=== PATIENT | female | born 1950 | race Caucasian/White ===

== ENCOUNTER 2016-10-22 12:33 | Emergency (ER) | payer OTHER ==
[2016-10-22 12:46] VITALS: TEMP 97.7
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
[2016-10-22] MEDS ORDERED: ONDANSETRON DISINTEGRATING 4 MG TAB PO ONE (14:48)
[2016-10-22 15:31] VITALS: BP 120/81; PULSE 74; RESP 16; O2SAT 96
== END 2016-10-22 15:40 | disposition home or self-care (01) ==
DX: S16.1XXA Strain of muscle, fascia and tendon at neck level, initial encounter (principal); V49.40XA Driver injured in collision with unspecified motor vehicles in traffic accident, initial encounter; Y92.410 Unspecified street and highway as the place of occurrence of the external cause; Y99.8 Other external cause status; Y93.89 Activity, other specified

== ENCOUNTER 2018-03-10 14:22 | Emergency (ER) | payer OTHER, MEDICARE ==
--- NOTE | 2018-03-10 14:34 | EDPHY ---
H & P Time Seen by Provider: 03/10/18 14:24 HPI/ROS: HPI: This is a 67-year-old female who presents with Chief Complaint: Left upper quadrant pain Location: Left lower quadrant Quality: Pain Duration: 1 hr prior to arrival Signs and Symptoms: no fever, no nausea, no vomiting, no hematemesis, no blood in stool, no abdominal bloating, no diarrhea, no back pain, no urinary symptoms , no vaginal bleeding/discharge, no indigestion, no chest pain, no shortness of breath Timing: Acute, slowly improved Severity: Moderate Context: Patient had a colonoscopy with polypectomy due to history of colonic polyps performed by Dr. Davis outpatient today at 11:00 a.m. Patient developed left upper quadrant left rib pain status post procedure. Initial x- ray was negative for free air and perforation. Patient sent to the emergency room for further evaluation. Given IV fentanyl on route with near complete relief of pain. Denies any lower extremity edema/swelling, shortness of breath , chest pain. She is passing liquid stool but is not passing flatus yet. Denies any nausea, vomiting. Modifying Factors: Fentanyl Comment: ROS: A comprehensive 10 system review of systems is otherwise negative aside from elements mentioned in the history of present illness. MEDICAL/SURGICAL/SOCIAL HISTORY: Medical history: peripheral neuropathy, meningiomas, r rotator cuff Surgical history: Colonoscopy Social history: Retired. Family history noncontributory. CONSTITUTIONAL: Polite and cooperative, well-appearing elderly white female awake and alert, no obvious distress HEENT: Atraumatic and normocephalic, PERRL, EOMI. Nares patent; no rhinorrhea; no nasal mucosal edema. Tympanic membranes clear. Oropharynx clear, no exudate and moist pink mucosa. Airway patent. No lymphadenopathy. No meningismus. Cardiovascular: Normal S1/S2, regular rate, regular rhythm, without murmur rub or gallop. PULMONARY/CHEST: Symmetrical and nontender. Clear to auscultation bilaterally. Good air movement. No accessory muscle usage. ABDOMEN: Soft, nondistended, moderate left upper quadrant and epigastric tenderness, no rebound, no guarding, no peritoneal signs, no masses or organomegaly. No CVAT. Bowel sounds hypoactive x4 quadrants. EXTREMITIES: 2/2 pulses, strength 5/5, no deformities, no clubbing, no cyanosis or edema. NEUROLOGICAL: no focal neuro deficits. GCS 15. SKIN: Warm and dry, no erythema. no rash. Good capillary refill. Source: Patient Exam Limitations: No limitations - Medical/Surgical History Hx Asthma: No Hx Chronic Respiratory Disease: No Hx Diabetes: No Hx Cardiac Disease: No Hx Renal Disease: No Hx Cirrhosis: No Hx Alcoholism: No Hx HIV/AIDS: No Hx Splenectomy or Spleen Trauma: No Other PMH: peripheral neuropathy. meningiomas. r rotator cuff - Social History Smoking Status: Never smoked Constitutional: Initial Vital Signs Temperature (C) 36.7 C 03/10/18 14:28 Heart Rate 81 03/10/18 14:28 Respiratory Rate 20 03/10/18 14:28 Blood Pressure 127/75 H 03/10/18 14:28 O2 Sat (%) 95 03/10/18 14:28 O2 Delivery Mode Room Air Allergies/Adverse Reactions: divalproex sodium [From Depakote] Allergy (Verified 10/22/16 12:41) Sulfa (Sulfonamide Antibiotics) Allergy (Verified 10/22/16 12:41) Home Medications: Medication Instructions Recorded Dilaudid 10/22/16 Levothyroxine 10/22/16 Medical Decision Making - Diagnostics Imaging Results: Imaging Impressions Abdomen CT 03/10/18 14:33 Impression: 1. Increased density ascites around the spleen and to the cul-de-sac and could be related to blood products. There is no evidence of contrast extravasation from IV contrast administration. Only a small amount of ascites is noted around the liver. 2. Increase in size of dominant cyst upper pole left kidney with additional smaller cysts noted bilaterally. 3. Vascular congestion around the periphery of the uterus as well as into each adnexa with prominence of the left ovarian vein. Consider pelvic congestion syndrome. If indicated, consider consultation with interventional radiology for possible embolization procedure. 4. Interval increase in size and number of liver cysts / hamartomas. Findings discussed with Sandra BARRAZA and Dr. Davis at 15:55 hour, 2017. ED Course/Re-evaluation: Vital signs reviewed and stable upon arrival. IV access and laboratory studies obtain. CT abdomen and pelvis scan ordered Patient is currently not in any pain. 1514: Labs reviewed. No signs of leukocytosis/anemia/platelet dysfunction/YOVANA/ elevated LFTs/electrolyte imbalance/pancreatitis. 1552: Called by Radiology, Dr. Brown, who reports CT abdomen and pelvis scan shows no free air, perforation, obstruction. Does show increase in renal and liver cysts this from prior study which appeared to be benign. Ultrasound is not recommended for follow-up. There is a small amount of splenic ascites measuring 1 x 2 cm. 1555: Attending, Dr. Kovacs, called Dr. Davis and updated on unremarkable results. Dr. Davis advised that he will call the patient tomorrow for close follow-up. Discharged with pain control and follow up with Dr. Davis This patient was seen under the supervision of my secondary supervising physician. I evaluated care for this patient independently. Discussed this patient with Dr. Kovacs. Differential Diagnosis: Differential diagnosis includes but is not limited to perforation, peritonitis, pancreatitis, peptic ulcer disease, abdominal gas pain. - Data Points Laboratory Results: Laboratory Results 03/10/18 14:41 03/10/18 14:41 03/10/18 03/10/18 14:41 14:41 WBC 7.85 10^3/uL 10^3/uL (3.80-9.50) RBC 4.14 10^6/uL L 10^6/uL (4.18-5.33) Hgb 12.7 g/dL g/dL (12.6-16.3) Hct 36.8 % L % (38.0-47.0) MCV 88.9 fL fL (81.5-99.8) MCH 30.7 pg pg (27.9-34.1) MCHC 34.5 g/dL g/dL (32.4-36.7) RDW 13.3 % % (11.5-15.2) Plt Count 187 10^3/uL 10^3/uL (150-400) MPV 10.4 fL fL (8.7-11.7) Neut % (Auto) 79.9 % H % (39.3-74.2) Lymph % (Auto) 12.2 % L % (15.0-45.0) [place] % (Auto) 6.8 % % (4.5-13.0) Eos % (Auto) 0.1 % L % (0.6-7.6) Baso % (Auto) 0.5 % % (0.3-1.7) Nucleat RBC Rel Count 0.0 % % (0.0-0.2) Absolute Neuts (auto) 6.27 10^3/uL 10^3/uL (1.70-6.50) Absolute Lymphs (auto) 0.96 10^3/uL L 10^3/uL (1.00-3.00) Absolute Monos (auto) 0.53 10^3/uL 10^3/uL (0.30-0.80) Absolute Eos (auto) 0.01 10^3/uL L 10^3/uL (0.03-0.40) Absolute Basos (auto) 0.04 10^3/uL 10^3/uL (0.02-0.10) Absolute Nucleated RBC 0.00 10^3/uL 10^3/uL (0-0.01) Immature Gran % 0.5 % % (0.0-1.1) Immature Gran # 0.04 10^3/uL 10^3/uL (0.00-0.10) Sodium 136 mEq/L mEq/L (135-145) Potassium 3.9 mEq/L mEq/L (3.3-5.0) Chloride 107 mEq/L mEq/L (97-110) Carbon Dioxide 21 mEq/l L mEq/l (22-31) Anion Gap 8 mEq/L mEq/L (6-14) BUN 11 mg/dL mg/dL (7-23) Creatinine 0.5 mg/dL L mg/dL (0.6-1.0) Estimated GFR > 60 Glucose 85 mg/dL mg/dL (70-100) Calcium 9.1 mg/dL mg/dL (8.5-10.4) Total Bilirubin 1.0 mg/dL mg/dL (0.1-1.4) Conjugated Bilirubin 0.2 mg/dL mg/dL (0.0-0.5) Unconjugated Bilirubin 0.8 mg/dL mg/dL (0.0-1.1) AST 14 IU/L IU/L (14-46) ALT 23 IU/L IU/L (9-52) Alkaline Phosphatase 45 IU/L IU/L (38-126) Total Protein 5.6 g/dL L g/dL (6.3-8.2) Albumin 3.4 g/dL L g/dL (3.5-5.0) Lipase 63 IU/L IU/L (23-300) Departure - Departure Disposition: Home, Routine, Self-Care Clinical Impression: Postoperative left upper quadrant abdominal pain, Benign liver cyst, Benign cyst of kidney Condition: Good Instructions: Gas and Bloating (ED), Colonoscopy (DC) Additional Instructions: Consume a minimum of 8-10 glasses of water or electrolyte fluid replacement dr You are encouraged to walk frequently. Take Tylenol 650 mg every 4 hr and/or ibuprofen 600 mg every 8 hr as needed for pain. Take [id number] Mylicon or Gas-X as needed for abdominal gas pain. Dr. Davis will call you tomorrow for close follow up. Return to the Emergency Room if symptoms do not resolve in the next 48-72 hours , you spike a fever > 102 F, or experience intractable abdominal pain/nausea/ vomiting. Referrals: Ashwin Davis MD [[facility] Primary Care Provider] - As per Instructions
[2018-03-10 14:50] LABS: PLATELET COUNT 187 10^3/uL (150-400)
[2018-03-10] MEDS ORDERED: IOPAMIDOL (ISOVUE-300) 100 ML BTL ONE (15:11)
[2018-03-10 16:19] VITALS: BP 122/72
== END 2018-03-10 16:43 | disposition home or self-care (01) ==
LOC: EDUNIT#
DX: R10.12 Left upper quadrant pain (principal); K76.89 Other specified diseases of liver; N28.1 Cyst of kidney, acquired; Z98.890 Other specified postprocedural states
CPT/HCPCS: 74177; 99285; Q9967

== ENCOUNTER → 2018-03-10 | Outpatient (CLI) | payer OTHER, MEDICARE | LOC: BMCIMAGING 12:49 | PROVIDERS: ATTEND Internal Medicine Gastroenterology | DX: R10.12 Left upper quadrant pain (principal) ==

== ENCOUNTER 2018-03-11 15:16 | Emergency (ER) | payer OTHER, MEDICARE ==
[2018-03-11] MEDS ORDERED: NS 1,000 ML IV ONE ×2 (15:23→16:23)
[2018-03-11 15:31] LABS: PLATELET COUNT 238 10^3/uL (150-400)
--- NOTE | 2018-03-11 15:38 | EDPHY ---
H & P Stated Complaint: Abdominal pain. Time Seen by Provider: 03/11/18 15:20 HPI/ROS: CHIEF COMPLAINT: Vomiting unable to keep medications down HISTORY OF PRESENT ILLNESS: The patient is a 67-year-old female who comes to the emergency department complaining of nausea vomiting and unable to keep pain medications down. She was seen here yesterday for abdominal pain. She had had a colonoscopy earlier in the day and then developed left upper quadrant pain and was referred by Dr. Davis here to the ER. She had a CT scan was unremarkable except for small amount of fluid around the spleen. No sign of perforation. Patient states that her pain is improved but that she has been vomiting today and cannot keep her medications down or fluids. She typically takes Dilaudid throughout the day to control her chronic peripheral neuropathy pain. No fevers. No blood in her vomit. No diarrhea. She was given Zofran and fentanyl by EMS and now states that she feels completely better. Severity: Moderate Modifying factors: None REVIEW OF SYSTEMS: Constitutional: denies: chills, fever, recent illness, recent injury EENTM: denies: blurred vision, double vision, nose congestion Respiratory: denies: cough, shortness of breath Cardiac: denies: chest pain, irregular heart rate, lightheadedness, palpitations Gastrointestinal/Abdominal: denies: abdominal pain, diarrhea, nausea, vomiting, blood streaked stools Genitourinary: denies: dysuria, frequency, hematuria, pain Musculoskeletal: denies: joint pain, muscle pain Skin: denies: lesions, rash, jaundice, bruising Neurological: denies: headache, numbness, paresthesia, tingling, dizziness, weakness Hematologic/Lymphatic: denies: blood clots, easy bleeding, easy bruising Immunologic/allergic: denies: HIV/AIDS, transplant 10 systems reviewed and negative except as noted EXAM: GENERAL: Well-appearing, well-nourished and in no acute distress. HEAD: Atraumatic, normocephalic. EYES: Pupils equal round and reactive to light, extraocular movements intact, sclera anicteric, conjunctiva are normal. ENT: TMs normal, nares patent, oropharynx clear without exudates. Moist mucous membranes. NECK: Normal range of motion, supple without lymphadenopathy or JVD. LUNGS: Breath sounds clear to auscultation bilaterally and equal. No wheezes rales or rhonchi. HEART: Regular rate and rhythm without murmurs, rubs or gallops. ABDOMEN: Soft, nontender, normoactive bowel sounds. No guarding, no rebound. No masses appreciated. BACK: No CVA tenderness, no spinal tenderness, step-offs or deformities EXTREMITIES: Normal range of motion, no pitting or edema. No clubbing or cyanosis. NEUROLOGICAL: Cranial nerves II through XII grossly intact. Normal speech, normal gait. 5/5 strength, normal movement in all extremities, normal sensation , normal reflexes PSYCH: Normal mood, normal affect. SKIN: Warm, dry, normal turgor, no visible rashes or lesions. Source: Patient Exam Limitations: No limitations - Personal History Current Tetanus Diphtheria and Acellular Pertussis (TDAP): Yes Tetanus Vaccine Date: 2016 - Medical/Surgical History Hx Asthma: No Hx Chronic Respiratory Disease: No Hx Diabetes: No Hx Cardiac Disease: No Hx Renal Disease: No Hx Cirrhosis: No Hx Alcoholism: No Hx HIV/AIDS: No Hx Splenectomy or Spleen Trauma: No Other PMH: peripheral neuropathy. meningiomas. r rotator cuff. Hypothyroid. - Family History Significant Family History: No pertinent family hx - Social History Smoking Status: Never smoked Alcohol Use: Sober Drug Use: None Constitutional: Initial Vital Signs Temperature (C) 36.9 C 03/11/18 15:19 Heart Rate 84 03/11/18 15:19 Respiratory Rate 16 03/11/18 15:19 Blood Pressure 138/71 H 03/11/18 15:19 O2 Sat (%) 95 03/11/18 15:19 O2 Delivery Mode Room Air Allergies/Adverse Reactions: divalproex sodium [From Depakote] Allergy (Verified 10/22/16 12:41) Sulfa (Sulfonamide Antibiotics) Allergy (Verified 10/22/16 12:41) Home Medications: Medication Instructions Recorded Dilaudid 10/22/16 Levothyroxine 10/22/16 Promethazine HCl [Phenergan 25mg 25 mg SD Q4-6PRN PRN #10 suppr 03/11/18 supp (RX)] Medical Decision Making ED Course/Re-evaluation: The patient is feeling better after treatment by EMS. I will hydrate her and recheck her lab work. She would like to take her own Dilaudid. 4:15 p.m. the patient is feeling much better. Her abdominal exam remains benign. She has not had any more vomiting. She would like a 2nd L of fluid. She is also tolerating p.o.. 5:00 p.m. the patient's abdominal exam remains benign. She is sleeping comfortably. She states that she feels ready to go home. We discussed options. She is tolerating p. O.. I will prescribe her rectal Phenergan as an option. Differential Diagnosis: Partial list of the Differential diagnosis considered include but were not limited to; vomiting, dehydration and although unlikely based on the history and physical exam, I also considered obstruction, ischemia, volvulus, perforation. I discussed these differential diagnoses and the plan with the patient as well as the usual and expected course. The patient understands that the diagnosis is provisional and that in medicine we are not always correct and that further workup is often warranted. Usual and customary warnings were given. All of the patient's questions were answered. The patient was instructed to return to the emergency department should the symptoms at all worsen or return, otherwise to followup with the physician as we discussed. - Data Points Laboratory Results: Laboratory Results 03/11/18 15:26 03/11/18 15:26 03/11/18 03/11/18 15:26 15:26 WBC 10.69 10^3/uL H 10^3/uL (3.80-9.50) RBC 4.64 10^6/uL 10^6/uL (4.18-5.33) Hgb 14.1 g/dL g/dL (12.6-16.3) Hct 40.9 % % (38.0-47.0) MCV 88.1 fL fL (81.5-99.8) MCH 30.4 pg pg (27.9-34.1) MCHC 34.5 g/dL g/dL (32.4-36.7) RDW 13.5 % % (11.5-15.2) Plt Count 238 10^3/uL 10^3/uL (150-400) MPV 10.8 fL fL (8.7-11.7) Neut % (Auto) 78.4 % H % (39.3-74.2) Lymph % (Auto) 14.4 % L % (15.0-45.0) [place] % (Auto) 5.9 % % (4.5-13.0) Eos % (Auto) 0.1 % L % (0.6-7.6) Baso % (Auto) 0.5 % % (0.3-1.7) Nucleat RBC Rel Count 0.0 % % (0.0-0.2) Absolute Neuts (auto) 8.38 10^3/uL H 10^3/uL (1.70-6.50) Absolute Lymphs (auto) 1.54 10^3/uL 10^3/uL (1.00-3.00) Absolute Monos (auto) 0.63 10^3/uL 10^3/uL (0.30-0.80) Absolute Eos (auto) 0.01 10^3/uL L 10^3/uL (0.03-0.40) Absolute Basos (auto) 0.05 10^3/uL 10^3/uL (0.02-0.10) Absolute Nucleated RBC 0.00 10^3/uL 10^3/uL (0-0.01) Immature Gran % 0.7 % % (0.0-1.1) Immature Gran # 0.08 10^3/uL 10^3/uL (0.00-0.10) Sodium 137 mEq/L mEq/L (135-145) Potassium 4.1 mEq/L mEq/L (3.3-5.0) Chloride 104 mEq/L mEq/L (97-110) Carbon Dioxide 19 mEq/l L mEq/l (22-31) Anion Gap 14 mEq/L mEq/L (6-14) BUN 8 mg/dL mg/dL (7-23) Creatinine 0.7 mg/dL mg/dL (0.6-1.0) Estimated GFR > 60 Glucose 75 mg/dL mg/dL (70-100) Calcium 9.9 mg/dL mg/dL (8.5-10.4) Total Bilirubin 1.4 mg/dL mg/dL (0.1-1.4) Conjugated Bilirubin 0.3 mg/dL mg/dL (0.0-0.5) Unconjugated Bilirubin 1.1 mg/dL mg/dL (0.0-1.1) AST 17 IU/L IU/L (14-46) ALT 24 IU/L IU/L (9-52) Alkaline Phosphatase 63 IU/L IU/L (38-126) Total Protein 6.7 g/dL g/dL (6.3-8.2) Albumin 4.3 g/dL g/dL (3.5-5.0) Lipase 98 IU/L IU/L (23-300) Medications Given: Discontinued Medications Sodium Chloride (Ns) 1,000 mls @ 0 mls/hr IV EDNOW ONE; Wide Open PRN Reason: Protocol Stop: 03/11/18 15:24 Last Admin: 03/11/18 15:38 Dose: 1,000 mls Sodium Chloride (Ns) 1,000 mls @ 0 mls/hr IV EDNOW ONE; Wide Open PRN Reason: Protocol Stop: 03/11/18 16:24 Last Admin: 03/11/18 16:28 Dose: 1,000 mls Departure - Departure Disposition: Home, Routine, Self-Care Clinical Impression: Dehydration Vomiting Qualifiers: Vomiting type: unspecified Vomiting Intractability: non-intractable Nausea presence: with nausea Qualified Code(s): R11.2 - Nausea with vomiting, unspecified Condition: Fair Instructions: Acute Nausea and Vomiting (ED) Referrals: Patient,NotPresent [Unknown] - As per Instructions Ashwin Davis MD [[facility] [place] Primary Care Provider] - 2-3 days, call for appt. Prescriptions: Promethazine HCl [Phenergan 25mg supp (RX)] 25 mg SD Q4-6PRN PRN #10 suppr PRN Reason: Headache
[2018-03-11 18:04] VITALS: BP 125/78
== END 2018-03-11 18:15 | disposition home or self-care (01) ==
LOC: EDUNIT#
DX: R11.2 Nausea with vomiting, unspecified (principal); E86.0 Dehydration; G62.9 Polyneuropathy, unspecified; E03.9 Hypothyroidism, unspecified; Z98.890 Other specified postprocedural states

== ENCOUNTER 2018-03-12 10:34 | Inpatient (IN) | payer OTHER, MEDICARE ==
[2018-03-12] MEDS ORDERED: NS 1,000 ML IV ONE (10:57)
[2018-03-12] MEDS ORDERED: LORazepam 2 MG/ML INJ IVP ONE (11:02)
--- NOTE | 2018-03-12 11:03 | EDPHY ---
H & P Stated Complaint: NV - since colonoscopy wed Time Seen by Provider: 03/12/18 10:52 HPI/ROS: CHIEF COMPLAINT: Intractable vomiting HISTORY OF PRESENT ILLNESS: The patient presents to the ED with intractable vomiting since her colonoscopy on Thursday. The patient has been seen in the emergency department now 3 times. She did undergo a CT scan of her abdomen and pelvis 2 days ago which demonstrated a nonspecific amount of fluid around her spleen but otherwise was unremarkable. The patient was seen again yesterday and discharged home with suppositories which have not helped her vomiting. She continues to have crampy abdominal pain. She denies fever. She denies additional acute complaints. REVIEW OF SYSTEMS: A comprehensive 10 point review of systems is otherwise negative aside from elements mentioned in the history of present illness. Source: Patient - Personal History Current Tetanus Diphtheria and Acellular Pertussis (TDAP): Yes Tetanus Vaccine Date: 2016 - Medical/Surgical History Hx Asthma: No Hx Chronic Respiratory Disease: No Hx Diabetes: No Hx Cardiac Disease: No Hx Renal Disease: No Hx Cirrhosis: No Hx Alcoholism: No Hx HIV/AIDS: No Hx Splenectomy or Spleen Trauma: No Other PMH: peripheral neuropathy. meningiomas. r rotator cuff. Hypothyroid. Migraines - Social History Smoking Status: Never smoked - Physical Exam Exam: General Appearance: Alert, no distress Eyes: Pupils equal and round no pallor or injection ENT, Mouth: Mucous membranes moist Respiratory: There are no retractions, lungs are clear to auscultation Cardiovascular: Regular rate and rhythm Gastrointestinal: Mild abdominal tenderness, no peritoneal signs, normal bowel sounds Neurological: A&O, normal motor function, normal sensory exam, normal cranial nerves Skin: Warm and dry, no rashes Musculoskeletal: Neck is supple nontender Extremities: symmetrical, full range of motion Psychiatric: Patient is oriented X 3, there is no agitation Constitutional: Initial Vital Signs Temperature (C) 37 C 03/12/18 10:44 Heart Rate 67 03/12/18 10:44 Respiratory Rate 18 03/12/18 10:44 Blood Pressure 194/93 H 03/12/18 10:44 O2 Sat (%) 100 03/12/18 10:44 O2 Delivery Mode Room Air Allergies/Adverse Reactions: divalproex sodium [From Depakote] Allergy (Verified 10/22/16 12:41) Sulfa (Sulfonamide Antibiotics) Allergy (Verified 10/22/16 12:41) Home Medications: Medication Instructions Recorded HYDROmorphone HCL [Hydromorphone 2 mg PO QID PRN MDD MODERATE PAIN 03/12/18 HCl] Levothyroxine [Synthroid 88 mcg 88 mcg PO DAILY06 03/12/18 (*)] Medical Decision Making - Diagnostics Imaging Results: Imaging Impressions Abdomen CT 03/12/18 11:19 Impression: Grade 1 splenic laceration with improving subcapsular hematoma and blood in the cul-de-sac. Results discussed with Dr. Finesse Faye at 11:46 AM. General information for patients regarding this examination can be found at [email or web address]. If you have questions or comments about this report, please contact me at [phone] (hospital) or [phone] (cell). ED Course/Re-evaluation: The patient presents the ED with intractable vomiting and ongoing abdominal pain since a colonoscopy 3 days ago. I reviewed her past medical records including her CT scan from 2 days ago. The patient had an IV established. She received 2 L of normal saline. She received IV Zofran. Given her ongoing symptoms the CT scan was repeated and does demonstrate a small contained splenic laceration with a mild amount of hemoperitoneum. Consultation was made with Dr. Morales from General surgery who feels that this is non operative at this point time. He is comfortable with admission to the hospitalist service for IV fluid hydration and control of her vomiting. Patient underwent serial examinations in the ED. She had no evidence of hypotension or critical anemia noted on her laboratory testing. Consultation was made with the hospitalist service. The patient will be admitted by Dr. Hankins. Differential Diagnosis: Differential diagnosis considered includes dehydration, metabolic abnormality, intra-abdominal injury, perforation, obstruction Critical Care Time: Critical care time exclusive of procedures and exclusive of the PA's time was 35 minutes, performed by myself, Graeme Faye MD. The patient presents to the ED with a delayed diagnosis of a spleen injury. The patient was noted to be quite dehydrated with a low CO2 of 15. She required aggressive fluid hydration in the ED. She will be admitted to the hospital for further resuscitation and stabilization. Consultation was made with both the trauma surgeon and hospitalist regarding her care. - Data Points Laboratory Results: Laboratory Results 03/12/18 10:50 03/12/18 10:50 03/12/18 03/12/18 10:50 10:50 WBC 10.55 10^3/uL H 10^3/uL (3.80-9.50) RBC 5.09 10^6/uL 10^6/uL (4.18-5.33) Hgb 15.6 g/dL g/dL (12.6-16.3) Hct 45.5 % % (38.0-47.0) MCV 89.4 fL fL (81.5-99.8) MCH 30.6 pg pg (27.9-34.1) MCHC 34.3 g/dL g/dL (32.4-36.7) RDW 13.5 % % (11.5-15.2) Plt Count 261 10^3/uL 10^3/uL (150-400) MPV 11.2 fL fL (8.7-11.7) Neut % (Auto) 91.8 % H % (39.3-74.2) Lymph % (Auto) 5.7 % L % (15.0-45.0) [place] % (Auto) 1.7 % L % (4.5-13.0) Eos % (Auto) 0.1 % L % (0.6-7.6) Baso % (Auto) 0.2 % L % (0.3-1.7) Nucleat RBC Rel Count 0.0 % % (0.0-0.2) Absolute Neuts (auto) 9.69 10^3/uL H 10^3/uL (1.70-6.50) Absolute Lymphs (auto) 0.60 10^3/uL L 10^3/uL (1.00-3.00) Absolute Monos (auto) 0.18 10^3/uL L 10^3/uL (0.30-0.80) Absolute Eos (auto) 0.01 10^3/uL L 10^3/uL (0.03-0.40) Absolute Basos (auto) 0.02 10^3/uL 10^3/uL (0.02-0.10) Absolute Nucleated RBC 0.00 10^3/uL 10^3/uL (0-0.01) Immature Gran % 0.5 % % (0.0-1.1) Immature Gran # 0.05 10^3/uL 10^3/uL (0.00-0.10) Sodium 140 mEq/L mEq/L (135-145) Potassium 4.1 mEq/L mEq/L (3.3-5.0) Chloride 102 mEq/L mEq/L (97-110) Carbon Dioxide 15 mEq/l L mEq/l (22-31) Anion Gap 23 mEq/L H mEq/L (6-14) BUN 8 mg/dL mg/dL (7-23) Creatinine 0.6 mg/dL mg/dL (0.6-1.0) Estimated GFR > 60 Glucose 132 mg/dL H mg/dL (70-100) Calcium 10.5 mg/dL H mg/dL (8.5-10.4) Medications Given: Discontinued Medications Sodium Chloride (Ns) 1,000 mls @ 0 mls/hr IV EDNOW ONE; Wide Open PRN Reason: Protocol Stop: 03/12/18 10:58 Last Admin: 03/12/18 11:09 Dose: 1,000 mls Lorazepam (Ativan Injection) 1 mg IVP EDNOW ONE Stop: 03/12/18 11:03 Last Admin: 03/12/18 11:10 Dose: 1 mg Departure - Departure Disposition: [facility] Clinical Impression: Dehydration Vomiting Qualifiers: Vomiting type: bilious vomiting Nausea presence: with nausea Qualified Code(s) : R11.14 - Bilious vomiting Spleen laceration Qualifiers: Encounter type: initial encounter Qualified Code(s): S36.039A - Unspecified laceration of spleen, initial encounter Condition: Fair
[2018-03-12 11:07] LABS: PLATELET COUNT 261 10^3/uL (150-400)
[2018-03-12] MEDS ORDERED: IOPAMIDOL (ISOVUE-300) 100 ML BTL ONE (11:23)
--- NOTE | 2018-03-12 12:44 | GCON ---
DATE OF CONSULTATION: 03/12/2018 CHIEF COMPLAINT: Abdominal pain with nausea and vomiting. HISTORY OF PRESENT ILLNESS: This is a 67-year-old female who underwent a colonoscopy on Thursday. This is her 3rd visit to the emergency department. Briefly, each day since the colonoscopy, she has presented with nausea, vomiting , and abdominal pain. She had a CT scan of her abdomen and pelvis 2 days ago, which was fairly unremarkable with the exception of a little bit of fluid around the spleen. Since that time, her nausea, vomiting, and pain have not really gotten any worse but have not gotten any better. So, she represented today, and a repeat CT scan shows a grade 1 splenic laceration. On my evaluation of the patient, she is fairly lethargic, able to provide me a history. She really points to the left upper quadrant for pain but seems somewhat exhausted. PAST MEDICAL HISTORY: Significant for peripheral neuropathy, meningiomas, hypothyroidism, and migraines. PAST SURGICAL HISTORY: She has had a rotator cuff repair. No abdominal surgeries. FAMILY HISTORY: Noncontributory. SOCIAL HISTORY: She denies any illicit drug use. 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 REVIEW OF SYSTEMS: A full 10-point review was performed. PHYSICAL EXAM: VITAL SIGNS: Temperature 37 even, blood pressure 175/94, heart rate 70, and she is 98% on room air. CONSTITUTIONAL: She appears tired but not in any distress. EYES: Somewhat sunken but otherwise equal, round, and reactive to light and accommodation. Her extraocular movements are intact. EARS, NOSE, MOUTH, THROAT: She has dry mucous membranes. Her hearing is normal. She has normal dentition. CARDIOVASCULAR: She has a regular rate and rhythm without any murmurs. RESPIRATORY: She has no respiratory distress, rales, or rhonchi. She is otherwise clear to auscultation bilaterally. ABDOMEN : Soft, nondistended. She is minimally tender in the left upper quadrant. There is no rebound, tenderness or guarding. SKIN: Warm. Normal color. No rashes or abrasions. MUSCULOSKELETAL: Full strength. No tenderness. Normal joint range of motion. NEUROLOGIC: She is alert and oriented x3. Her cranial nerves 2-12 are intact. She has no weakness, no numbness. PSYCH: She is interacting appropriately. She is not anxious or encephalopathic. She has a linear thought process. LYMPH/HEME/IMMUNOLOGIC: She has no cervical, groin, or supraclavicular lymphadenopathy appreciated. LABORATORY DATA: White blood cell count is 10.5, H and H are stable at 15 and 45. Chemistry shows an elevated glucose at 132 and an elevated calcium at 10.5. IMAGING: Includes a CT scan of her abdomen and pelvis. There was also one 2 days ago. These images were personally reviewed. No free air. No free fluid. There is a small subcapsular hematoma consistent with a grade 1 spleen laceration. There are no other significant findings. ASSESSMENT/PLAN: A 67-year-old female status post colonoscopy with intractable nausea, vomiting, and abdominal pain. Agree with admission for hydration and treatment of her nausea. Her abdominal exam is overall reassuring. I do not see any signs of guarding or rebound tenderness. Anticipate that she will get better over time. Her CT scan is fairly unremarkable. I do not see anything that would be concerning at this point in time. We will follow along with you. /[id number]/MODL MTDD
[2018-03-12] MEDS ORDERED: ONDANSETRON DISINTEGRATING 4 MG TAB PO PRN (13:11)
[2018-03-12] MEDS ORDERED: ACETAMINOPHEN 325 MG TAB PO PRN (13:11)
[2018-03-12] MEDS ORDERED: NS 1,000 ML IV SCH (13:15)
--- NOTE | 2018-03-12 16:10 | GHP ---
DATE OF ADMISSION: 03/12/2018 CHIEF COMPLAINT: Abdominal pain, nausea, vomiting. HISTORY OF PRESENT ILLNESS: This is a 67-year-old female who underwent colonoscopy on 03/10/2018. S he presented to the ER later that afternoon because of left upper quadrant pain. CT scan did show a little bit of fluid around the spleen. She was discharged. She returned to the ER yesterday for the same problem, but felt better and went home again. Then, she returned today, with the same pain, na usea, vomiting, and unable to keep food down. CT scan at this time showed a splenic laceration. Vale n is well controlled currently. She is not complaining of any nausea. No fevers or chills. REVIEW OF SYSTEMS: Ten-point Review of Systems was obtained and otherwise negative. PAST MEDICAL HISTORY: 1. Hypothyroidism. 2. History of meningiomas. They are not operable. SOCIAL HISTORY: No smoking. FAMILY HISTORY: Reviewed and noncontributory. PHYSICAL EXAMINATION: VITAL SIGNS: Afebrile. Blood pressure is 171/85, heart rate 72, oxygen satur ation 97% on room air. GENERAL: Patient is well-developed, no apparent distress. HEENT: Nonicteri c sclerae. Extraocular movements intact. Moist mucous membranes. NECK: Supple. No thyromegaly. LUNGS: Good effort. Clear to auscultation bilaterally. CARDIOVASCULAR: Regular rate and rhythm. No murmurs or gallops. ABDOMEN: Positive bowel sounds. Soft. Mild left upper quadrant tenderness. EXTREMITIES: No clubbing, cyanosis, or edema. SKIN: Without rash. Dry, intact. NEURO: Alert a nd oriented x3. Moving all extremities equally. PSYCH: Normal affect. LABORATORY DATA: White count slightly elevated at 10, hemoglobin is normal. Chemistry: There is a little bit of an anion gap acidosis. CT scan of the abdomen and pelvis shows grade 1 splenic lacerat ion with improving subcapsular hematoma and blood in the cul-de-sac. ASSESSMENT: 1. 67-year-old female with splenic laceration, status post colonoscopy. Plan: Surgery will see the patient. The treatment will be supportive care. Continue IV fluids. Will continue pain control, w ith antiemetics. 2. Hypothyroidism. Will continue medication. 3. Elevated blood pressure, probably related to pain. Will continue to watch. /[id number]/MODL
[2018-03-12] MEDS: ONDANSETRON 4 MG/2 ML VIAL IVP PRN ×2 (16:45→21:01)
[2018-03-12] MEDS: D5W 1/2 NS W/ 20 KCl/L 1,000 ML IV SCH (16:45)
[2018-03-12] MEDS ORDERED: ACETAMINOPHEN 325 MG SUPP PR PRN (18:39)
[2018-03-12] MEDS ORDERED: ACETAMINOPHEN 650 MG SUPP PR PRN (20:00)
[2018-03-12] MEDS: PROMETHAZINE HCL 25 MG/ML INJ IVP PRN (22:15)
[2018-03-13] MEDS ORDERED: LORazepam 2 MG/ML INJ IVP ONE (00:07)
[2018-03-13] MEDS: ONDANSETRON 4 MG/2 ML VIAL IVP PRN ×2 (03:31→14:35)
[2018-03-13 05:06] LABS: PLATELET COUNT 237 10^3/uL (150-400)
[2018-03-13] MEDS: D5W 1/2 NS W/ 20 KCl/L 1,000 ML IV SCH ×2 (06:06→18:01)
[2018-03-13] MEDS: LEVOTHYROXINE 88 MCG TAB PO SCH (06:09)
--- NOTE | 2018-03-13 08:41 | SOAPPROG ---
SOAP Progress Note Assessment/Plan: Assessment: nausea persists, but is better. She is tolerating clears abdominal exam remains reassuring and non-surgical. Cont clears until nausea is better CBC stable will follow Plan: 03/13/18 08:40 03/13/18 08:41 Subjective: persistent nausea Objective: Vital Signs Temp Pulse Resp BP Pulse Ox 37.1 C 81 14 162/79 H 96 03/13/18 07:39 03/13/18 07:39 03/13/18 07:39 03/13/18 07:39 03/13/18 07:39 Laboratory Results 03/13/18 04:24 03/13/18 04:24 03/12/18 03/13/18 03/14/18 05:59 05:59 05:59 Intake Total 1320 734 Balance 1320 734 ICD10 Worksheet Patient Problems: Problems Problem Status Onset Dehydration Acute Spleen laceration Acute Vomiting Acute
[2018-03-13] MEDS: PROMETHAZINE HCL 25 MG/ML INJ IVP PRN ×2 (10:56→19:54)
--- NOTE | 2018-03-13 13:16 | ASMTCMCOM ---
CM Note CM Note Notes: Pt presented to the ED for abdominal pain and N/V. Pt had a colonoscopy on 03/10/18; pt was was seen in the ED later that evening and her abdominal CT scan showed a little bit of fluid around the spleen but pt was discharged home. Pt presented again on 03/11 for same symptoms but eventually felt better and went home again. Pt admitted for intractable vomiting and splenic laceration (03/[address] scan); treatment will be supportive care. MD progress notes state pt is tolerating clears but is still nauseaus; pt's exam appears non-surgical. Exact DC needs TBD but anticipate pt to stabilize and DC Home Ind. CM to follow. Date Signed: 03/13/2018 01:16 PM Electronically Signed By:Charisma Becerra RN
--- NOTE | 2018-03-13 14:23 | HOSPPROG ---
Hospitalist Progress Note Assessment/Plan: Splenic Laceration - S/p colonoscopy on 03/10 - Seen on CT on admission with grade 1 splenic laceration with improving subcapsular hematoma and blood in the cul-de-sac - Evaluated by surgery who recommended no intervention - Continue pain control, antiemetics PRN - Continue IVF - Continue to monitor H/H Leukocytosis - WBC increased t0 12.6 this AM, also febrile to 38.4 overnight - Likely 2/2 to inflammatory rxn 2/2 to above - Will hold on abx for now, if continue to be febrile or increasing leukocytosis , order blood cultures and start empiric abx Hypothyroidism - Continue home Synthroid Elevated BP - BP elevated to SBP 160's this AM - Will continue to monitor, if remains elevated SBP >160 will start ow dose antihypertensive, does not appear pt is on one at home FEN: Regular DVT Ppx: Holding in setting of splenic laceration Code: FULL Dispo: Pending clinical course Objective: Vital Signs Temp Pulse Resp BP Pulse Ox 37.1 C 81 14 162/79 H 96 03/13/18 07:39 03/13/18 07:39 03/13/18 07:39 03/13/18 07:39 03/13/18 07:39 Laboratory Results 03/13/18 04:24 03/13/18 04:24 03/12/18 03/13/18 03/14/18 05:59 05:59 05:59 Intake Total 1320 734 Balance 1320 734 - Physical Exam Constitutional: uncomfortable Eyes: PERRL Ears, Nose, Mouth, Throat: moist mucous membranes Cardiovascular: regular rate and rhythym, No edema Respiratory: no respiratory distress Gastrointestinal: tenderness, No rebound, No distension Genitourinary: No montalvo in urethra Skin: warm Neurologic: AAOx3 Psychiatric: flat affect ICD10 Worksheet Patient Problems: Problems Problem Status Onset Dehydration Acute Spleen laceration Acute Vomiting Acute
[2018-03-13] MEDS: LORazepam 2 MG/ML INJ IVP PRN (15:56)
--- NOTE | 2018-03-13 18:17 | PDMN ---
Medical Necessity Medical necessity: Change to IP, as of 03/13/18, per MD; los >2 mn for ongoing management of splenic laceration s/p colonoscopy w/persistent nausea, leukocytosis & elevated BP; requiring further monitoring, advancement of diet as tolerated, IVFs, IV antiemetics & follow-up labs
[2018-03-14] MEDS: LORazepam 2 MG/ML INJ IVP PRN ×2 (01:14→12:36)
[2018-03-14] MEDS: PROMETHAZINE HCL 25 MG/ML INJ IVP PRN ×2 (04:54→12:35)
[2018-03-14] MEDS: LEVOTHYROXINE 88 MCG TAB PO SCH (04:54)
[2018-03-14] MEDS: HYDROmorphONE/DILAUDID 1 MG/ML INJ IVP PRN ×3 (04:57→21:53)
[2018-03-14] MEDS: D5W 1/2 NS W/ 20 KCl/L 1,000 ML IV SCH ×2 (07:18→17:59)
[2018-03-14] MEDS: ONDANSETRON 4 MG/2 ML VIAL IVP PRN ×2 (09:35→21:53)
--- NOTE | 2018-03-14 10:32 | HOSPPROG ---
Hospitalist Progress Note Assessment/Plan: Splenic Laceration - S/p colonoscopy on 03/10 - Seen on CT on admission with grade 1 splenic laceration with improving subcapsular hematoma and blood in the cul-de-sac - Evaluated by surgery who recommended no intervention - Continue pain control PRN, will schedule antiemetics given constant nausea - Continue IVF - Continue to monitor H/H, remains stable - Continue CLD, advance as tolerated Leukocytosis - WBC 12.2 this AM, 12.6 yesterday, Afebrile since overnight yesterday - Likely 2/2 to inflammatory rxn 2/2 to above - Will hold on abx for now, if continue to be febrile or increasing leukocytosis , order blood cultures and start empiric abx Hypothyroidism - Continue home Synthroid Elevated BP - BP elevated to SBP 150's this AM - Will continue to monitor, if remains elevated SBP >160 will start ow dose antihypertensive, does not appear pt is on one at home FEN: Regular DVT Ppx: Holding in setting of splenic laceration Code: FULL Dispo: Pending clinical course Subjective: Patient reports nausea this morning Objective: Vital Signs Temp Pulse Resp BP Pulse Ox 37.4 C 95 14 151/94 H 94 03/14/18 07:42 03/14/18 07:42 03/14/18 07:42 03/14/18 07:42 03/14/18 07:42 Laboratory Results 03/14/18 04:12 03/14/18 04:12 03/13/18 03/14/18 03/15/18 05:59 05:59 05:59 Intake Total 2965 Balance 2965 - Physical Exam Constitutional: no apparent distress Eyes: PERRL Ears, Nose, Mouth, Throat: dry mucous membranes Cardiovascular: regular rate and rhythym Respiratory: no respiratory distress Gastrointestinal: tenderness (TTP in LUQ) Genitourinary: No montalvo in urethra Skin: normal color Neurologic: AAOx3 Psychiatric: flat affect ICD10 Worksheet Patient Problems: Problems Problem Status Onset Dehydration Acute Spleen laceration Acute Vomiting Acute
[2018-03-14] MEDS ORDERED: ONDANSETRON DISINTEGRATING 4 MG TAB PO PRN (10:33)
--- NOTE | 2018-03-14 11:40 | SOAPPROG ---
SOAP Progress Note Assessment/Plan: Assessment: her nausea is improving along with the vomiting but she is still vomiting. ok for clear liquids, told her to go slow agree with holding abx, wbc is 12 and could be 2/2 vomiting alone hb has been stable. her abdomen is soft and she has bowel sounds Plan: 03/13/18 08:40 03/13/18 08:41 03/14/18 11:39 Subjective: feels a little better each day, still vomiting Objective: Vital Signs Temp Pulse Resp BP Pulse Ox 37.4 C 95 14 151/94 H 94 03/14/18 07:42 03/14/18 07:42 03/14/18 07:42 03/14/18 07:42 03/14/18 07:42 Laboratory Results 03/14/18 04:12 03/14/18 04:12 03/13/18 03/14/18 03/15/18 05:59 05:59 05:59 Intake Total 2965 Balance 2965 ICD10 Worksheet Patient Problems: Problems Problem Status Onset Dehydration Acute Spleen laceration Acute Vomiting Acute
[2018-03-14] MEDS: ONDANSETRON DISINTEGRATING 4 MG TAB PO SCH ×2 (12:20→17:28)
[2018-03-14] MEDS ORDERED: SCOPOLAMINE HYDROBROMIDE 1 MG/3 DAYS PATCH TD ONE (13:54)
[2018-03-14] MEDS ORDERED: LORazepam 2 MG/ML INJ IVP PRN (13:54)
[2018-03-15] MEDS: ONDANSETRON DISINTEGRATING 4 MG TAB PO SCH ×3 (00:28→11:27)
[2018-03-15] MEDS: PROMETHAZINE HCL 25 MG/ML INJ IVP PRN ×2 (05:02→11:03)
[2018-03-15] MEDS: LEVOTHYROXINE 88 MCG TAB PO SCH (05:03)
[2018-03-15 05:23] LABS: PLATELET COUNT 199 10^3/uL (150-400)
[2018-03-15] MEDS: D5W 1/2 NS W/ 20 KCl/L 1,000 ML IV SCH (06:05)
[2018-03-15] MEDS: ONDANSETRON 4 MG/2 ML VIAL IVP PRN (06:06)
[2018-03-15] MEDS: HYDROmorphONE/DILAUDID 1 MG/ML INJ IVP PRN ×4 (06:07→23:40)
[2018-03-15] MEDS ORDERED: CEPACOL LOZENGE PO PRN (11:27)
--- NOTE | 2018-03-15 12:33 | SOAPPROG ---
SOAP Progress Note Assessment/Plan: Assessment: her nausea has improved and she is tolerating clear liquids. Would advance as tolerated White count has essentially normalized Abdominal exam is reassuring Anticipate discharge within the next day or so given her improvement. I will sign off, call with any questions or concerns. There is no formal need for follow-up with me or any repeat imaging necessary for a grade 1 splenic lac. Plan: 03/13/18 08:40 03/13/18 08:41 03/14/18 11:39 03/15/18 12:32 Subjective: Nausea has improved, still has some occasional abdominal pain but stable. Objective: Vital Signs Temp Pulse Resp BP Pulse Ox 37.3 C 89 16 141/85 H 95 03/15/18 07:19 03/15/18 07:19 03/15/18 07:19 03/15/18 11:24 03/15/18 07:19 Laboratory Results 03/15/18 04:24 03/14/18 04:12 03/14/18 03/15/18 03/16/18 05:59 05:59 05:59 Intake Total 2965 300 903 Balance 2965 300 903 ICD10 Worksheet Patient Problems: Problems Problem Status Onset Dehydration Acute Spleen laceration Acute Vomiting Acute
[2018-03-15] MEDS ORDERED: HYDROmorphONE/DILAUDID 2 MG TAB PO PRN (13:20)
--- NOTE | 2018-03-15 13:27 | HOSPPROG ---
Hospitalist Progress Note Assessment/Plan: * Splenic laceration as complication of colonoscopy - grade 1 -supportive care -pain control - IV dilaudid - change to PO dilaudid as able * Intractable N/V - just tolerating first clear liquids -advance diet as tolerated * Hypothyroid -continue synthroid * HTN -might be due to pain -close outpatient follow-up Subjective: Just tolerating clear liquids Objective: Vital Signs Temp Pulse Resp BP Pulse Ox 37.3 C 86 16 141/85 H 95 03/15/18 07:19 03/15/18 09:00 03/15/18 07:19 03/15/18 11:24 03/15/18 09:00 Laboratory Results 03/15/18 04:24 03/14/18 04:12 03/14/18 03/15/18 03/16/18 05:59 05:59 05:59 Intake Total 2965 300 903 Balance [address] abd/pelvis - subcapsular hematoma spleen Old chart reviewed - visited the ER daily prior to final admission. CT initially negative - Physical Exam Constitutional: no apparent distress, appears nourished, not in pain Cardiovascular: regular rate and rhythym, no murmur, rub, or gallop Respiratory: no respiratory distress, no rales or rhonchi, clear to auscultation Gastrointestinal: normoactive bowel sounds, soft, non-tender abdomen, no palpable masses Skin: no rashes or abrasions, no fluctuance, no induration Neurologic: AAOx3, sensation intact bilaterally Psychiatric: interacting appropriately, not anxious, not encephalopathic, thought process linear ICD10 Worksheet Patient Problems: Problems Problem Status Onset Dehydration Acute Spleen laceration Acute Vomiting Acute
--- NOTE | 2018-03-15 15:29 | ASMTCMCOM ---
CM Note CM Note Notes: Patient plan of care reviewed in rounds. Patient admitted via ED on 03/13 with intractable N/V. Tolerating clear liquids today. Has spleenic laceration. Doing better. Surgery to sign off. Likely able to discharge in the next day or so. No needs identified CM available should needs arise. Plan: Home no needs when medically cleared for discharge. Date Signed: 03/15/2018 03:29 PM Electronically Signed By:Lindy Concepcion RN
[2018-03-16] MEDS: PROMETHAZINE HCL 25 MG/ML INJ IVP PRN (04:48)
[2018-03-16] MEDS: ONDANSETRON 4 MG/2 ML VIAL IVP PRN (05:41)
[2018-03-16] MEDS: LEVOTHYROXINE 88 MCG TAB PO SCH ×2 (05:42→06:45)
[2018-03-16] MEDS: D5W 1/2 NS W/ 20 KCl/L 1,000 ML IV SCH ×2 (08:23→22:12)
[2018-03-16] MEDS ORDERED: oxyCODONE IR 5 MG TAB PO PRN (10:28)
[2018-03-16] MEDS ORDERED: LORazepam 2 MG/ML INJ IVP PRN (12:15)
[2018-03-16] MEDS ORDERED: SCOPOLAMINE HYDROBROMIDE 1 MG/3 DAYS PATCH TD SCH (12:30)
[2018-03-16 12:46] LABS: PLATELET COUNT 185 10^3/uL (150-400)
--- NOTE | 2018-03-16 16:14 | HOSPPROG ---
Hospitalist Progress Note Assessment/Plan: * Splenic laceration as complication of colonoscopy - grade 1 -supportive care -pain control - IV dilaudid - change to PO dilaudid as able * Intractable N/V - continues to gag with minimal PO intake -can't even tolerate pills - continue IV therapy -scopolamine patch added * Hypothyroid -continue synthroid * HTN -might be due to pain - patient reports low BP as outpatient Subjective: Gagging with the smallest PO intake, can't tolerate pills yet Objective: Vital Signs Temp Pulse Resp BP Pulse Ox 36.9 C 88 14 117/76 95 03/16/18 15:19 03/16/18 15:19 03/16/18 15:19 03/16/18 15:19 03/16/18 15:19 Laboratory Results 03/16/18 12:37 03/16/18 12:37 03/15/18 03/16/18 03/17/18 05:59 05:59 05:59 Intake Total 300 3640 300 Balance 300 3640 300 - Physical Exam Constitutional: no apparent distress, appears nourished, not in pain Cardiovascular: regular rate and rhythym, no murmur, rub, or gallop Respiratory: no respiratory distress, no rales or rhonchi, clear to auscultation Gastrointestinal: normoactive bowel sounds, soft, non-tender abdomen, no palpable masses Skin: no rashes or abrasions, no fluctuance, no induration Neurologic: AAOx3, sensation intact bilaterally Psychiatric: interacting appropriately, not anxious, not encephalopathic, thought process linear ICD10 Worksheet Patient Problems: Problems Problem Status Onset Dehydration Acute Vomiting Acute Spleen laceration Acute
[2018-03-17] MEDS: LEVOTHYROXINE 88 MCG TAB PO SCH (04:33)
[2018-03-17] MEDS: PROMETHAZINE HCL 25 MG/ML INJ IVP PRN ×2 (05:21→19:15)
[2018-03-17] MEDS: ONDANSETRON 4 MG/2 ML VIAL IVP PRN (06:49)
--- NOTE | 2018-03-17 09:43 | HOSPPROG ---
Hospitalist Progress Note Assessment/Plan: * Syncopal episode - likely dehydration/orthostasis vs vasovagal event -check H/H, CMP -low concern for seizure, cardiac etiology * Splenic laceration as complication of colonoscopy - grade 1 -supportive care -pain control - oxycodone, APAP prn * Intractable N/V - slightly improved but ongoing, unclear etiology, passing flatus -reviewed CT from 03/12, no obstruction -IVF, anti-emetics -scopolamine patch * Hyponatremia - hypovolemic -recheck Na level * Hypothyroid -continue synthroid * HTN -might be due to pain - patient reports low BP as outpatient Diet: regular VTE ppx: SCDs Dispo: remain inpatient until able to better tolerate PO Subjective: Did well last night, had mashed potatoes and soup but then having worsening nausea/vomiting this AM. Also had brief episode of LOC while in the shower. She felt faint and lost consciousness for about 5 seconds per RN who witnessed this. No seizure activity. No antecedent chest pain, palpitations, dyspnea. Objective: Vital Signs Temp Pulse Resp BP Pulse Ox 37.0 C 81 16 156/88 H 95 03/17/18 07:05 03/17/18 07:05 03/17/18 04:27 03/17/18 07:05 03/17/18 07:05 Laboratory Results 03/16/18 12:37 03/16/18 12:37 03/16/18 03/17/18 03/18/18 05:59 05:59 05:59 Intake Total 3640 2682 Output Total 1600 100 Balance 3640 1082 -100 - Physical Exam Constitutional: no apparent distress, appears nourished, not in pain Eyes: PERRL, anicteric sclera, EOMI Ears, Nose, Mouth, Throat: moist mucous membranes, hearing normal, ears appear normal, no oral mucosal ulcers Cardiovascular: regular rate and rhythym, no murmur, rub, or gallop Respiratory: no respiratory distress, no rales or rhonchi, clear to auscultation Gastrointestinal: normoactive bowel sounds, soft, non-tender abdomen, no palpable masses Genitourinary: no bladder fullness, no bladder tenderness, no renal bruits Skin: no rashes or abrasions, no fluctuance, no induration Musculoskeletal: full muscle strength, no muscle tenderness, normal joint ROM Neurologic: AAOx3, sensation intact bilaterally Psychiatric: interacting appropriately, not anxious, not encephalopathic, thought process linear ICD10 Worksheet Patient Problems: Problems Problem Status Onset Dehydration Acute Spleen laceration Acute Vomiting Acute
--- NOTE | 2018-03-17 10:08 | ASMTCMCOM ---
CM Note CM Note Notes: Chart reviewed Some progress made with regards to oral intake. No clear discharge plan yet. CM to follow for needs. Plan: TBD Date Signed: 03/17/2018 10:07 AM Electronically Signed By:Lindy Concepcion RN
[2018-03-17] MEDS: D5W 1/2 NS W/ 20 KCl/L 1,000 ML IV SCH (19:15)
[2018-03-18] MEDS: HYDROCORTISONE 0.2% VALERATE CREAM TP SCH ×2 (00:39→08:51)
[2018-03-18] MEDS ORDERED: MELATONIN 3 MG TAB PO PRN (00:46)
[2018-03-18] MEDS: LEVOTHYROXINE 88 MCG TAB PO SCH (05:58)
[2018-03-18] MEDS: D5W 1/2 NS W/ 20 KCl/L 1,000 ML IV SCH (06:49)
[2018-03-18 08:33] VITALS: BP 114/68
--- NOTE | 2018-03-18 13:36 | PDDCSUM ---
Discharge Summary Discharge Summary: Date of Admission: 03/12/2018 Date of Discharge: 03/18/2018 Consultants: general surgery (Dr Morales) Procedures/Studies: 1. CT abd/pelvis with contrast 03/12/18 - grade 1 splenic laceration with improving subcapsular hematoma and blood in the cul-de-sac compared to 03/10 Discharge Diagnoses: 1. Grade 1 splenic laceration as complication of colonoscopy 2. Intractable nausea and vomiting 3. Syncopal episode, orthostatic 4. Hypovolemic hyponatremia, resolving 5. H/o meningiomas 6. ? h/o seizures 7. Hypothyroidism Brief Hospital Course: 67yo F with history of two meningiomas ([id number], [id number] on 2006 MRI), possible seizures not on AEDs presents with intractable n/v and abdominal pain. CT showed low grade splenic laceration which was likely a complication of recent colonoscopy. General surgery was consulted who recommended non-surgical management. Her H/H remained stable and she did not require blood transfusion. Her symptoms, which were attributed to splenic capsular stretch, were eventually controlled and she is tolerating PO at discharge. She should follow up with her PCP. Of note, she did have a brief loss of consciousness during this hospitalization that was consistent with orthostatic hypotension. This did not recur and she was walking around without symptoms prior to discharging. This episode was not consistent with a seizure. Medications: Please refer to EMR for complete list. Changes this admission include addition of phenergan. Follow Up Plan: 1. PCP clinic visit in 1-2 weeks 2. If nausea/vomiting recurs, consider brain imaging to evaluate for [employer] cause ( ie. progression of meningiomas) Physical Exam: Vitals reviewed, normotensive and afebrile. Alert and oriented, rrr without m/r/g, lungs clear, abdomen soft and nontender, no rashes, no edema.
--- NOTE | 2018-03-18 13:44 | ASDISCHSUM ---
Discharge Information Plan Status:Home with No Needs Medically Cleared to Leave:03/18/2018 Discharge Date:03/18/2018 CM D/C Disposition:Home, Routine, Self-Care ADT D/C Disposition:Home, Routine, Self-Care Projected Discharge Date:03/18/2018 Transportation at D/C: Discharge Delay Reason: Follow-Up Date:03/18/2018 Discharge Slot: Final Diagnosis: Placement Information Patient Contact Information Contact Name:CASIE Relationship:Bautista Address: Work Phone: City:[place] Alternate Phone: [facility]/e27 Code:BREANNE Email: Financial Information Financial Class:Medicare Primary Plan Desc:MEDICARE INPATIENT Primary Plan Number:[id number] Secondary Plan Desc:[employer]/M[employer] SUPPLEMENT Secondary Plan Number:[id number] Assessment Information LACE LACE Length of stay for Answers: 4-6 days current admission Acuity / Level of Answers: No Care: Did the patient have an inpatient admission? Comorbidities - select Answers: Any tumor (including all that apply lymphoma or leukemia) Other Notes: hypothyroidism, meningi anna s (inoperable), periphera l neuropathy, migraines # of Emergency department Answers: 3-4 visits in the last 6 months Social determinants Answers: Lack of community resources and/or lack of social support (no pcp, lives alone, transportation, iraj d) Score: 14 Date Signed: 03/18/2018 01:42 PM Electronically Signed By:Lindy Concepcion RN [facility] CM Progress Note CM Note CM Note Notes: Pt presented to the ED for abdominal pain and N/V. Pt had a colonoscopy on 03/10/18; pt was was seen in the ED later that evening and her abdominal CT scan showed a little bit of fluid around the spleen but pt was discharged home. Pt presented again on 03/11 for same symptoms but eventually felt better and went home again. Pt admitted for intractable vomiting and splenic laceration (03/[address] scan); treatment will be supportive care. progress notes state pt is tolerating clears but is still nauseaus; pt's exam appears non-surgical. Exact DC needs TBD but anticipate pt to stabilize and DC Home Ind. CM to follow. Date Signed: 03/13/2018 01:16 PM Electronically Signed By:Charisma Becerra RN [facility] CM Progress Note CM Note CM Note Notes: Patient plan of care reviewed in rounds. Patient admitted via ED on 03/13 with intractable N/V. Tolerating clear liquids today. Has spleenic laceration. Doing better. Surgery to sign off. Likely able to discharge in the next day or so. No needs identified CM available should needs arise. Plan: Home no needs when medically cleared for discharge. Date Signed: 03/15/2018 03:29 PM Electronically Signed By:Lindy Concepcion RN [facility] CM Progress Note CM Note CM Note Notes: Chart reviewed Some progress made with regards to oral intake. No clear discharge plan yet. CM to follow for needs. Plan: TBD Date Signed: 03/17/2018 10:07 AM Electronically Signed By:Lindy Concepcion RN Intervention Information
--- NOTE | 2018-03-18 13:50 | ASMTCMCOM ---
CM Note CM Note Notes: Plan of care reviewed in rounds. She is medically stable for discharge to home. Provided her with pamphlet on [employer] home coming program and encouraged her to call today. No other needs identified Plan: DC to home independently. Date Signed: 03/18/2018 01:49 PM Electronically Signed By:Lindy Concepcion RN
== END 2018-03-18 16:12 | disposition home or self-care (01) | DRG 920 ==
LOC: EDUNIT# → F1N 13:05 → OBSVTOIN 03-13 17:05
PROVIDERS: ADMIT Internal Medicine; ATTEND Internal Medicine
DX: K91.71 Accidental puncture and laceration of a digestive system organ or structure during a digestive system procedure (principal); S36.030A Superficial (capsular) laceration of spleen, initial encounter; E03.9 Hypothyroidism, unspecified; E87.1 Hypo-osmolality and hyponatremia; R55 Syncope and collapse; R03.0 Elevated blood-pressure reading, without diagnosis of hypertension; D32.9 Benign neoplasm of meninges, unspecified; R56.9 Unspecified convulsions; G62.9 Polyneuropathy, unspecified
CPT/HCPCS: 96374; 97116-GP; 97161-GP; 97165-GO; 97530-GO; 97530-GP; G0378; G8978-GP-CJ; G8979-GP-CI; G8987-GO-CJ; G8988-GO-CI; J1170; J2060; J2405; J2550; Q9967